=== PATIENT | male | born 1980 | race African-American/Black ===

== ENCOUNTER 2017-05-26 23:49 | Emergency (ER) | payer SELFPAY ==
[~2017-05-26] VITALS: Ht 175.3 cm; Wt 68.0 kg
== END 2017-05-27 01:09 | disposition home or self-care (01) ==
LOC: FSED 23:49
DX: R11.2 Nausea with vomiting, unspecified (principal); R19.7 Diarrhea, unspecified
CPT/HCPCS: 99282